=== PATIENT | male | born 1965 | race Hispanic/Latino ===

== ENCOUNTER → 2017-04-29 | Outpatient (CLI) | payer OTHER | END | disposition home or self-care (01) | LOC: RAH 11:27 | PROVIDERS: ATTEND Physician Assistant Medical | DX: R05 Cough (principal) | CPT/HCPCS: 71046 ==

== ENCOUNTER → 2017-08-22 | Outpatient (CLI) | payer OTHER | END | disposition home or self-care (01) | LOC: RAH 08:56 | PROVIDERS: ATTEND Physician Assistant Medical | DX: M17.12 Unilateral primary osteoarthritis, left knee (principal) | CPT/HCPCS: 73562 ==